=== PATIENT | female | born 1960 | race Caucasian/White ===

== ENCOUNTER → 2018-01-28 09:25 | Outpatient (CLI) | payer OTHER | END | disposition home or self-care (01) | LOC: D.MAMMO 09:00 → D.US 09:25 | DX: Z00.00 Encounter for general adult medical examination without abnormal findings (principal); I73.9 Peripheral vascular disease, unspecified ==

== ENCOUNTER → 2018-02-11 13:17 | Outpatient (CLI) | payer OTHER | END | disposition home or self-care (01) | LOC: D.CT 13:17 | DX: I73.9 Peripheral vascular disease, unspecified (principal) ==

== ENCOUNTER → 2019-04-07 16:19 | Outpatient (CLI) | payer OTHER ==
[2019-04-07 18:41] LABS: PLT FUNCT.(P2Y12) PLAVIX 165 PRU (194-418)
== END | disposition home or self-care (01) ==
LOC: D.LAB 16:19
DX: I67.1 Cerebral aneurysm, nonruptured (principal)

== ENCOUNTER → 2019-05-08 11:21 | Outpatient (CLI) | payer OTHER ==
[2019-05-08 12:32] LABS: PLT FUNCT.(P2Y12) PLAVIX 6 PRU (194-418)
== END | disposition home or self-care (01) ==
LOC: D.LAB 11:21
PROVIDERS: ATTEND Radiology Vascular & Interventional Radiology
DX: I67.1 Cerebral aneurysm, nonruptured (principal)

== ENCOUNTER → 2020-04-06 08:43 | Outpatient (CLI) | payer OTHER ==
[2020-04-06 09:19] LABS: BASOPHILS 0.2 % (0-2); EOSINOPHILS 2.3 % (0-7); HEMATOCRIT 34.6 % (36.0-48.0); HEMOGLOBIN 11.1 g/dL (12-16); IMMATURE GRANULOCYTES 0.3 % (0-5); LYMPHOCYTES 24.2 % (15-50); MCH 30.2 pg (26.0-34.0); MCHC 32.1 g/dL (31.0-37.0); MCV 94.3 fL (80.0-100.0); MEAN PLATELET VOLUME 8.9 fL (7.4-10.4); MONOCYTES 7.3 % (2-11); NEUTROPHILS 65.7 % (40-80); PLATELET COUNT 266 10x3/uL (130-400); RBC 3.67 10x6/uL (4.00-5.40); RDW 17.9 % (11.5-14.5); WBC 8.9 10x3/uL (4.8-10.8)
[2020-04-06 09:41] LABS: ALBUMIN 3.5 g/dL (3.4-5.0); BILIRUBIN - DIRECT 0.14 mg/dL (0.00-0.30); BILIRUBIN - TOTAL 0.34 mg/dL (0.2-1.3); C-REACTIVE PROTEIN 0.6 mg/dL (0.0-0.9); CALCIUM 8.7 mg/dL (8.5-10.1); CARBON DIOXIDE 26.6 mmol/L (21.0-32.0); CREATININE - SERUM 1.1 mg/dL (0.6-1.3); MAGNESIUM - SERUM 1.7 mg/dL (1.8-2.4); PROTEIN - SERUM 6.8 g/dL (6.4-8.2)
[2020-04-06 10:05] LABS: ANION GAP 14.5 mmol/L (8-16); POTASSIUM - SERUM 3.1 mmol/L (3.5-5.1)
== END | disposition home or self-care (01) ==
LOC: D.LAB 08:43
PROVIDERS: ATTEND Pediatrics
DX: Z02.71 Encounter for disability determination (principal)

== ENCOUNTER 2021-02-14 12:30 | Emergency (ER) | payer OTHER ==
[~2021-02-14] VITALS: Ht 157.5 cm; Wt 54.5 kg
[~2021-02-14 12:30] MED LIST: ALBUTEROL2.5 MG/3 M INH; ALDACTONE25 MG PO; BAYER CHEWABLE81 MG PO; CLINORIL150 MG PO; ELIQUIS2.5 MG PO; FISH OIL 1,0001 CA1 PO; FLUTICASONE PRO16 GM NASAL; FUROSEMIDE20 MG PO; HYDROCODON-ACE1 EA10 PO; K-TAB10 MEQ PO; MAG-OXIDE400 MG PO; MUCINEX600 MG PO; MULTI-DAY VITAM1 TAB PO; OXYCODONE HCL10 MG PO; PEPCID40 MG PO; PREDNISONE20 MG PO; SOMA250 MG PO; THERAGRAN M [BK1 TAB PO; TOPROL XL50 MG PO; VISTARIL50 MG PO; VITAMIN B-1100 M1 PO; XIFAXAN550 MG PO; ZYRTEC10 MG PO
[2021-02-14 12:33] VITALS: Ht 157.5 cm; Wt 54.5 kg
[2021-02-14] MEDS ORDERED: ASPIRIN325 MG PO (12:42)
[2021-02-14] MEDS ORDERED: ROXICODONE15 MG PO (12:43)
[2021-02-14] MEDS ORDERED: LUMINEX PO (12:47)
[2021-02-14] MEDS ORDERED: BRILINTA90 MG PO (12:48)
[2021-02-14 14:00] VITALS: BP 140/76
== END 2021-02-14 14:00 | disposition home or self-care (01) ==
LOC: D.ER 12:30
DX: M25.551 Pain in right hip (principal); I10 Essential (primary) hypertension; K21.9 Gastro-esophageal reflux disease without esophagitis